=== PATIENT | male | born 1995 ===

== ENCOUNTER 2017-02-05 08:54 | Day surgery (SDC) | payer SELFPAY ==
[2017-02-05] MEDS ORDERED: Lactated Ringer's 1,000 ML IV ONE (09:43)
[2017-02-05 09:54] VITALS: O2SAT 4
[2017-02-05] MEDS ORDERED: Propofol 10 mg/ml Inj (20 ML) ONE (10:48)
[2017-02-05 11:34] VITALS: TEMP 97
[2017-02-05 11:59] VITALS: BP 100/60; PULSE 68; RESP 14
== END 2017-02-05 12:30 | disposition home or self-care (01) ==
LOC: H.ENDO 08:54
PROVIDERS: ATTEND Internal Medicine Gastroenterology
DX: K92.1 Melena (principal); R63.4 Abnormal weight loss; K62.5 Hemorrhage of anus and rectum; K64.8 Other hemorrhoids; K29.70 Gastritis, unspecified, without bleeding; K31.89 Other diseases of stomach and duodenum; K30 Functional dyspepsia
CPT/HCPCS: 43239; 45378; 88305; J2704; J7120

== ENCOUNTER 2017-10-19 08:58 | Emergency (ER) | payer SELFPAY ==
[2017-10-19 09:02] VITALS: BMI 26.2
[2017-10-19] MEDS ORDERED: Sodium Chloride 0.9% 1,000 ML IV STA (09:19)
--- NOTE | 2017-10-19 09:32 | ED PDOC ---
HPI: Abdomen Time Seen by Provider: 10/19/17 09:08 Chief Complaint (Nursing): Abdominal Pain Chief Complaint (Provider): Abdominal Pain History Per: Patient History/Exam Limitations: no limitations Onset/Duration Of Symptoms: Days (x2) Current Symptoms Are (Timing): Gone Now Additional Complaint(s): 22 y/o male with a PMHx of gastritis presenting for evaluation of abdominal pain. Patient states his pain began yesterday in his upper abdomen and radiated down to his lower abdomen. He reports multiple episodes of watery, non-bloody diarrhea as well as fever and some generalized weakness. He denies any chest pain, headache, shortness of breath, cough, nausea, vomiting, changes in eating habits, dysuria, hematuria, frequency, flank pain, testicular pain or penile discharge. Patient states since arrival to ER he has had no pain and currently has no symptoms. PMD: None reported Past Medical History Reviewed: Historical Data, Nursing Documentation, Vital Signs Vital Signs: Last Vital Signs Temp 98.6 F 10/19/17 09:02 Pulse 90 10/19/17 09:02 Resp 20 10/19/17 09:02 BP 108/69 10/19/17 09:02 Pulse Ox 98 10/19/17 09:56 - Medical History PMH: Gastritis - Surgical History Surgical History: No Surg Hx - Family History Family History: States: Unknown Family Hx - Living Arrangements Living Arrangements: With Family - Immunization History Hx Tetanus Toxoid Vaccination: No Hx Influenza Vaccination: No Hx Pneumococcal Vaccination: No - Home Medications Home Medications: Ambulatory Orders Medication Instructions Recorded Famotidine [Pepcid] 20 mg PO DAILY PRN #6 tab 10/19/17 - Allergies Allergies/Adverse Reactions: Allergies Allergy/AdvReac Type Severity Reaction Status Date / Time No Known Allergies Allergy Verified 10/19/17 09:08 Review of Systems ROS Statement: Except As Marked, All Systems Reviewed And Found Negative Constitutional: Positive for: Weakness Cardiovascular: Negative for: Chest Pain Respiratory: Negative for: Cough, Shortness of Breath Gastrointestinal: Positive for: Abdominal Pain, Diarrhea. Negative for: Nausea , Vomiting, Hematochezia Genitourinary Male: Negative for: Dysuria, Frequency, Hematuria, Penile Discharge, Scrotal Pain Musculoskeletal: Negative for: Back Pain Neurological: Positive for: Weakness. Negative for: Headache Physical Exam - Reviewed Nursing Documentation Reviewed: Yes Vital Signs Reviewed: Yes - Physical Exam Appears: Positive for: Non-toxic, No Acute Distress Head Exam: Positive for: ATRAUMATIC, NORMAL INSPECTION, NORMOCEPHALIC Skin: Positive for: Normal Color, Warm, Dry. Negative for: Rash Eye Exam: Positive for: EOMI, Normal appearance, PERRL ENT: Positive for: Normal ENT Inspection. Negative for: Nasal Congestion, Pharyngeal Erythema Neck: Positive for: Normal, Painless ROM, Supple Cardiovascular/Chest: Positive for: Regular Rate, Rhythm. Negative for: Murmur Respiratory: Positive for: Normal Breath Sounds. Negative for: Respiratory Distress Gastrointestinal/Abdominal: Positive for: Normal Exam, Soft. Negative for: Tenderness (non tender to deep palpation) Back: Positive for: Normal Inspection. Negative for: L CVA Tenderness, R CVA Tenderness, Vertebral Tenderness Extremity: Positive for: Normal ROM. Negative for: Tenderness, Pedal Edema, Deformity Neurologic/Psych: Positive for: Alert, caustic cresylate shift superintendent II-XII, Oriented (x3). Negative for : Motor/Sensory Deficits, Aphasia, Facial Droop - Laboratory Results Result Diagrams: 10/19/17 09:25 10/19/17 09:25 Interpretation Of Abn Labs: 23 bun - ECG O2 Sat by Pulse Oximetry: 98 (RA) Pulse Ox Interpretation: Normal - Progress ED Course And Treament: 1050: Stable. AAOx3. Pain free. Tolerated PO. Fu with pcp. Medical Decision Making Medical Decision Making: Plan: -CMP -Lipase -Urine dip -CBC w/ differential -1LNS -Pepcid 20mg IVP -Reevaluation Scribe Attestation: Documented by Guero Meyers, acting as a scribe for Sergio Bentley MD. Provider Scribe Attestation: All medical record entries made by the Scribe were at my direction and personally dictated by me. I have reviewed the chart and agree that the record accurately reflects my personal performance of the history, physical exam, medical decision making, and the department course for this patient. I have also personally directed, reviewed, and agree with the discharge instructions and disposition. Disposition - Clinical Impression Clinical Impression: Abdominal pain, Diarrhea Counseled Patient/Family Regarding: Studies Performed, Diagnosis, Need For Followup - Disposition Referrals: [facility] [Outside] - 10/21/17 Disposition: Routine/Home Disposition Time: 10:51 Condition: STABLE Additional Instructions: Return if not better in 3 days. Prescriptions: Famotidine [Pepcid] 20 mg PO DAILY PRN #6 tab PRN Reason: Pain Instructions: Diarrhea in Adolescents and Adults, Stomach Ache and Stomach Upset Print Language: YEMENI
[2017-10-19 09:33] LABS: BASO % 0.3 % (0.0-2.0); EOS % 0.2 % (0.0-4.0); HEMOGLOBIN 16.7 g/dL (12.0-18.0); LYMPH # 0.8 K/uL (1.0-4.3); LYMPH % 10.1 % (20.0-40.0); MEAN CELL VOLUME 92.1 fl (80.0-94.0); MEAN CORPUSCULAR HGB CONC 34.7 g/dL (33.0-37.0); MEAN PLATELET VOLUME 7.3 fl (7.2-11.7); MONO # 0.8 K/uL (0.0-0.8); NEUT # 6.3 K/uL (1.8-7.0); NEUT % 79.4 % (50.0-75.0); NRBC % 0.2 % (0.0-0.0); RBC 5.21 Mil/uL (4.40-5.90); RED CELL DISTRIBUTION WIDTH 12.5 % (11.5-14.5); WHITE BLOOD COUNT 7.9 K/uL (4.8-10.8)
[2017-10-19 09:39] LABS: ALB/GLOB RATIO 1.5 (1.0-2.1); ALBUMIN 4.7 g/dL (3.5-5.0); ALT/SGPT 45 U/L (21-72); AST/SGOT 26 U/L (17-59); BLOOD UREA NITROGEN 23 mg/dl (9-20); CALCIUM 9.5 mg/dL (8.4-10.2); GFR AFRICAN-AMERICAN > 60; GFR NON-AFRICAN AMERICAN > 60; LIPASE 216 U/L (23-300)
[2017-10-19 11:02] VITALS: BP 125/80; PULSE 75; RESP 16; TEMP 97.9; O2SAT 100
== END 2017-10-19 11:02 | disposition home or self-care (01) ==
LOC: H.ER 08:58
DX: R10.9 Unspecified abdominal pain (principal); R19.7 Diarrhea, unspecified
CPT/HCPCS: 80053; 83690; 85025; 96361; 96374; 99283; J7030

== ENCOUNTER 2017-10-26 14:55 | Emergency (ER) | payer SELFPAY ==
[2017-10-26 14:55] VITALS: BMI 26.2
--- NOTE | 2017-10-26 15:56 | ED PDOC ---
HPI: Abdomen Time Seen by Provider: 10/26/17 15:55 Chief Complaint (Nursing): Abdominal Pain Chief Complaint (Provider): RECTAL BLEEDING History Per: Patient (22 Y/O MALE HERE FOR EVALUATION OF RECTAL BLEEDING NOTED X 2 DAYS WITH 2-3 BOWEL MOVEMENTS. STATES HE WAS SEEN 6 DAYS PRIOR FOR DIARRHEA /FEVER THAT HAS SINCE RESOLVED. NOTES MINIMAL ABD PAIN WITH BM. ) Past Medical History Reviewed: Historical Data, Nursing Documentation, Vital Signs Vital Signs: Last Vital Signs Temp 98.5 F 10/26/17 15:28 Pulse 53 L 10/26/17 15:28 Resp 22 10/26/17 15:28 BP 123/72 10/26/17 15:28 Pulse Ox 99 10/26/17 15:56 - Medical History PMH: Gastritis - Family History Family History: States: Unknown Family Hx - Immunization History Hx Tetanus Toxoid Vaccination: No Hx Influenza Vaccination: No Hx Pneumococcal Vaccination: No - Home Medications Home Medications: Ambulatory Orders Medication Instructions Recorded Famotidine [Pepcid] 20 mg PO DAILY PRN #6 tab 10/19/17 - Allergies Allergies/Adverse Reactions: Allergies Allergy/AdvReac Type Severity Reaction Status Date / Time No Known Allergies Allergy Verified 10/19/17 09:08 Review of Systems ROS Statement: Except As Marked, All Systems Reviewed And Found Negative Physical Exam - Reviewed Nursing Documentation Reviewed: Yes Vital Signs Reviewed: Yes - Physical Exam Appears: Positive for: Well, Non-toxic, No Acute Distress Head Exam: Positive for: ATRAUMATIC, NORMAL INSPECTION, NORMOCEPHALIC Skin: Positive for: Normal Color, Warm, DRY Eye Exam: Positive for: EOMI, Normal appearance, PERRL ENT: Positive for: Normal ENT Inspection Neck: Positive for: Normal, Painless ROM Cardiovascular/Chest: Positive for: Regular Rate, Rhythm Respiratory: Positive for: CNT, Normal Breath Sounds Gastrointestinal/Abdominal: Positive for: Normal Exam, Soft Back: Positive for: Normal Inspection Extremity: Positive for: Normal ROM Neurologic/Psych: Positive for: Alert, Oriented - Laboratory Results Result Diagrams: 10/26/17 15:59 10/26/17 15:59 - ECG O2 Sat by Pulse Oximetry: 99 Disposition - Clinical Impression Clinical Impression: Rectal bleeding - Patient ED Disposition Is Patient to be Admitted: No - Disposition Referrals: Terrell Birch MD [Staff Provider] - Disposition: Routine/Home Disposition Time: 16:43 Condition: FAIR Instructions: Bloody Stools, Adult (DC) Print Language: ARMENIAN
[2017-10-26 16:04] LABS: BASO % 0.7 % (0.0-2.0); EOS # 0.1 K/uL (0.0-0.7); EOS % 2.6 % (0.0-4.0); HEMOGLOBIN 14.4 g/dL (12.0-18.0); LYMPH % 54.5 % (20.0-40.0); MEAN CELL VOLUME 93.3 fl (80.0-94.0); MEAN CORPUSCULAR HGB CONC 34.3 g/dL (33.0-37.0); MEAN PLATELET VOLUME 6.9 fl (7.2-11.7); MONO # 0.5 K/uL (0.0-0.8); MONO % 8.7 % (0.0-10.0); NEUT # 1.9 K/uL (1.8-7.0); NEUT % 33.5 % (50.0-75.0); NRBC % 0.1 % (0.0-0.0); RBC 4.49 Mil/uL (4.40-5.90); RED CELL DISTRIBUTION WIDTH 12.5 % (11.5-14.5); WHITE BLOOD COUNT 5.5 K/uL (4.8-10.8)
[2017-10-26 16:20] LABS: ALB/GLOB RATIO 1.4 (1.0-2.1); ALBUMIN 4.3 g/dL (3.5-5.0); ALT/SGPT 55 U/L (21-72); AST/SGOT 34 U/L (17-59); BLOOD UREA NITROGEN 19 mg/dl (9-20); CALCIUM 9.1 mg/dL (8.4-10.2); GFR AFRICAN-AMERICAN > 60; GFR NON-AFRICAN AMERICAN > 60
[2017-10-26 16:23] LABS: INR 1.1; PROTHROMBIN TIME 12.7 Seconds (9.8-13.1)
[2017-10-26 16:26] LABS: PARTIAL THROMBOPLASTIN TIME 30.3 Seconds (25.6-37.1)
[2017-10-26 17:15] VITALS: BP 111/47; PULSE 51; RESP 12; TEMP 97.8; O2SAT 98
== END 2017-10-26 17:13 | disposition home or self-care (01) ==
LOC: H.ER 14:55
DX: K62.5 Hemorrhage of anus and rectum (principal)
CPT/HCPCS: 80053; 85025; 85610; 85730; 99283; G0328